=== PATIENT | male | born 1985 | race Caucasian/White ===

== ENCOUNTER 2020-01-11 13:27 | Outpatient (REF) | payer OTHER, SELFPAY | END 2020-01-11 13:28 | disposition home or self-care (01) | LOC: HO.LAB 13:27 | PROVIDERS: Visit Provider Internal Medicine | DX: Z20.828 Contact with and (suspected) exposure to other viral communicable diseases (principal) | CPT/HCPCS: 36415; 87635 ==

== ENCOUNTER 2020-04-19 10:34 | Outpatient (REF) | payer OTHER, SELFPAY | END 2020-04-19 10:35 | disposition home or self-care (01) | LOC: HO.LAB 10:34 | PROVIDERS: Visit Provider Internal Medicine | DX: Z20.822 Contact with and (suspected) exposure to COVID-19 (principal) | CPT/HCPCS: 36415; C9803; U0003 ==

== ENCOUNTER 2020-05-05 09:21 | Outpatient (REF) | payer OTHER, SELFPAY | END 2020-05-05 09:22 | disposition home or self-care (01) | LOC: HO.LAB 09:21 | PROVIDERS: Visit Provider Internal Medicine | DX: Z20.822 Contact with and (suspected) exposure to COVID-19 (principal) | CPT/HCPCS: 36415; C9803; U0003 ==

== ENCOUNTER 2022-07-18 10:25 | Emergency (ER) | payer MEDICAID, SELFPAY ==
--- NOTE | ~2022-07-18 | CT_ITS ---
EXAMINATION: CT HEAD WITHOUT CONTRAST CLINICAL INFORMATION: Hypertension with headache COMPARISON: None available. TECHNIQUE: Contiguous axial imaging was performed from the skull base to vertex without intravenous administration of contrast. This CT examination was performed using dose optimization techniques as appropriate, variously including the following: *Automated exposure control *Adjustment of mA and/or kV according to patient size (this includes techniques or standardized protocols for targeted exams where dose is matched to indication/reason for exam; i.e. extremities or head) *Use of iterative reconstruction technique DLP: 600 mGy-cm FINDINGS: No intracranial hemorrhage is identified. No significant mass effect or midline structure shift. No abnormal extra-axial fluid collections. Ledesma-white matter interfaces are maintained. The ventricles, sulci, and cisterns appear unremarkable. Calvarium intact. Visualized paranasal sinuses and mastoid air cells unremarkable. Temporomandibular joints unremarkable. CT/CT head/brain wo IV con IMPRESSION: No acute intracranial pathology.
[2022-07-18 10:39] VITALS: BP 137/105; PULSE 78; RESP 18; TEMP 36.4; O2SAT 98; BMI 22.3
--- OUTSIDE RECORDS SUMMARY | 2022-07-18 11:48 | XMS_ITS | Continuity of Care Document ---
Author Name Unknown Organization [facility] ter Address [address] [place] [id number] Care Team Providers Care Law Researcher Name Role Phone Cynthia Don MD Primary Care Physician Encounter [facility] Date(s): 04/08/19 - 04/08/[address] [address]- [facility] Encounter Diagnosis Trauma(Final) - 04/08/19 Discharge Disposition: A-D/C Home Attending Physician: Elvin Johnson DO Admitting Physician: Elvin Johnson DO Referring Physician: Not on Staff, Referring MD Allergies, Adverse Reactions, Alerts No Known Medication Allergies Results Radiology Reports * Exam Date Time Procedure Performing Provider Status 04/08/19 3:59 AM Chest Portable Wild Velasquez (Verified) Notes: (Chest Portable) Reason For Exam: Pain;Other: RESULT: Chest Portable Chest Portable AP supine at 0340 INDICATION / CLINICAL QUESTION: Pain after trauma COMPARISON: None. FINDINGS: LINES AND TUBES: None. LUNGS AND PLEURA: Clear lungs. Normal pulmonary vascularity. No pleural effusion. No pneumothorax. HEART, MEDIASTINUM AND AUGUSTUS: Normal. No mediastinal widening. BONES AND SOFT TISSUES: Normal. IMPRESSION: Normal. WSN: [id number] Dictated By: Raymon Chiang MD Dictated Date/Time: 04/08/19 8:29 am Reviewed By: Raymon Chiang MD Signed By: Raymon Chiang MD Signed Date/Time: 04/08/19 8:29 am Transcribed By: FAM Transcribed Date/Time: 04/08/19 8:28 am Vital Signs Most recent to oldest [Reference Range]: 1 2 3 Oxygen Saturation [94-100 %] 100 % (04/08/19 11:39 AM) 99 % (04/08/19 10:12 AM) 100 % (04/08/19 7:47 AM) Pulse Rate [55-90 bpm] 93 bpm *H* (04/08/19 11:39 AM) 77 bpm (04/08/19 10:12 AM) 84 bpm (04/08/19 7:47 AM) Blood Pressure [90-138/55-84 mm Hg] 125/82mm Hg (04/08/19 11:39 AM) 121/70mm Hg (04/08/19 10:12 AM) 124/72mm Hg (04/08/19 7:47 AM) Respiratory Rate [16-30 br/min] 16 br/min (04/08/19 11:39 AM) 16 br/min (04/08/19 10:12 AM) 16 br/min (04/08/19 7:47 AM) Temperature [96.8-100.4 DegF] 97.6 DegF (04/08/19 11:39 AM) 98.1 DegF (04/08/19 10:12 AM) 98.0 DegF (04/08/19 7:47 AM) Mode of Delivery (Oxygen) Room air (04/08/19 11:39 AM) Room air (04/08/19 10:12 AM) Room air (04/08/19 7:47 AM) Blood pressure sites Arm, left (04/08/19 11:39 AM) Arm, left (04/08/19 10:12 AM) Arm, left (04/08/19 7:47 AM) Temperature Route Oral (04/08/19 11:39 AM) Oral (04/08/19 10:12 AM) Oral (04/08/19 7:47 AM)
--- NOTE | 2022-07-18 11:51 | ED_ITS ---
HPI - General Adult General Chief complaint: General Medical Stated complaint: Headache Vomiting Time Seen by Provider: 07/18/22 11:39 Source: patient Mode of arrival: ambulatory History of Present Illness HPI narrative: 36-year-old male with no significant past medical history presenting to the ED complaining of worsening headache since Saturday with associated nausea/vomiting, and pruritic rash to back noted yesterday. Denies vomiting today. Denies headache being maximal at onset. Denies fever, chills, vision change/loss, CP/SOB, abdominal pain, nausea/vomiting, recent travel, known tick/insect bites, sick contacts Onset (ago): day(s) Related Data Previous Rx's Medication Instructions Recorded amlodipine 5 mg tablet (Norvasc) 5 mg PO DAILY #30 tabs 07/18/22 [id number] 1 cap PO Q4-6H PRN headache #14 07/18/22 50 mg-300 mg-40 mg capsule caps (Fioricet) hydrocortisone 1 % lotion 1 appl topical BID PRN rash #120 mL 07/18/22 (Anti-Itch (hydrocortisone)) Allergies Allergy/AdvReac Type Severity Reaction Status Date / Time From ZOFRAN Allergy Severe SWELLING/RA Uncoded 07/18/22 14:20 SH zofran Allergy Unknown rash on Uncoded 07/18/22 14:20 face Review of Systems Review of Systems: Constitutional: No Fever, No Chills, No Fatigue, No Malaise ENT/Mouth: No Ear Pain, No Nasal Congestion, No sore throat, No Rhinorrhea, No Swallowing Difficulty Eyes: No Eye Pain, No Swelling, No Redness, No Vision Changes Cardiovascular: No Chest Pain, No SOB, No Edema, No Palpitations Respiratory: No Cough, No Sputum, No Dyspnea Gastrointestinal: + Nausea, + Vomiting, No Diarrhea, No Constipation, No Abdominal pain Genitourinary: No Dysuria, No Urinary Frequency, No Hematuria, No Urinary Incontinence/retention, No Flank Pain Musculoskeletal: No joint pain, No Myalgias, No Joint Swelling Skin: No Skin Lesions, + rash Neuro: No Weakness, No Numbness, No Paresthesias, No Loss of Consciousness, No Dizziness, + Headache Yes all other systems are reviewed and are negative Constitutional: Constitutional: Reports as per HPI Neurologic: Denies Abnormal speech present [facility] Past Medical History Attestation statement: The following information was validated with the patient. Social History Social History Advance Directives: No Advance Directives Information Provided: Yes Physical Exam ED Vital Signs: Vital Signs - 24 hr 07/18/22 10:39 07/18/22 12:50 07/18/22 13:29 Temperature 97.6 F Pulse Rate 78 79 Respiratory Rate 18 18 Blood Pressure 137/105 H 147/103 H 129/93 H Pulse Oximetry 98 99 Oxygen Delivery Method Room Air Room Air 07/18/22 14:08 Temperature Pulse Rate 72 Respiratory Rate 18 Blood Pressure 137/94 H Pulse Oximetry Oxygen Delivery Method BMI result Body Mass Index 22.3 Const General: cooperative, healthy appearing, comfortable and no acute distress Orientation/consciousness: patient oriented x3 Limitations: no limitations HENMT Head: Yes normal to inspection and Yes atraumatic Ears: hearing grossly normal bilaterally General nose exam: Normal external nose present Face and sinus: Yes normal facial exam Mouth: Normal oral and palatal mucosa present Throat: Yes posterior oropharynx normal, Yes uvula midline, No peritonsillar mass and No uvular edema Eyes General: appearance normal, both eyes and all related structures Pupils: Equal, round and reactive pupils present EOM: EOMs intact bilaterally Neck Neck: Yes normal visual inspection, Yes no meningeal signs, Yes supple and No anterior neck swelling Resp Effort & Inspection: normal respiratory effort and no respiratory distress Auscultation: clear to auscultation bilaterally Cardio Rate: regular rate Heart sounds: S1 normal heart sound present and S2 normal heart sound present GI Inspection: Yes normal to inspection Palpation (GI): Soft to palpation, nontender, no guarding and not rigid Skin Other: + faint papular rash noted to back. No palm/sole or mucous membrane involvement. No sloughing. Wounds: no wounds Neuro General: patient oriented x3, gait normal, tone normal, moves all extremities, no meningeal signs, no focal motor deficits and CN's II-XI intact bilaterally Cranial nerves: Yes Equal, round and reactive pupils present Cognition (Neuro): normal cognition Speech: No Abnormal speech present Gait exam (Neuro): Normal gait present Motor exam (neuro): 5/5 motor strength present throughout Extrem General: Yes normal to inspection Course Course Course Narrative: -patient persistently hypertensive BP 147/103 >will try p.o. Norvasc -1405--labs reassuring. COVID-19/influenza negative. Syphilis negative CT head/brain wo IV con IMPRESSION: No acute intracranial pathology. -repeat BP 129/93. On re-evaluation patient reports symptomatic improvement. She feels safe for discharge home at this time Discussed with patient need a close follow-up with PCP, states called while in the department and cannot get an appointment until October. Discussed with patient will send Norvasc to the pharmacy, recommended checking BP tomorrow morning and the next day, if elevated should initiate Norvasc. Reports he has a blood pressure machine at home, otherwise discussed going to walk-in clinic to take his BP. Patient feels comfortable with this Results discussed with patient including worrisome signs and symptoms and strict return precautions, and when to return to the emergency department. They verbalized understanding and feel safe for discharge at this time. Medications Administered Discontinued Medications Generic Name Dose Route Start Last Admin Trade Name Freq PRN Reason Stop Dose Admin Acetaminophen/Butalbital/Caffeine 2 tab 07/18/22 11:56 07/18/22 12:06 Butalb/Acetamin/Caff 50/325/40 Tablet PO 07/18/22 11:57 2 tab ONCE ONE Administration Amlodipine Besylate 5 mg 07/18/22 13:22 07/18/22 13:28 Amlodipine Besylate 5 Mg Tablet PO 07/18/22 13:23 5 mg ONCE ONE Administration Protocol Metoclopramide HCl 10 mg 07/18/22 12:05 07/18/22 12:10 Metoclopramide Hcl 10 Mg Tablet PO 07/18/22 12:06 10 mg ONCE ONE Administration Medical Decision Making Medical Decision Making MDM Narrative: 36-year-old male with no significant past medical history presenting to the ED complaining of worsening headache since Saturday with associated nausea/vomiting, and pruritic rash to back noted yesterday. On exam h ypertensive 137/105, denies history of HTN or taking BP meds, NAD, nontoxic, no focal deficits, faint papular rash noted to back with out sloughing or palm/sole involvement. No mucous membrane involvement. Concern for migraine headache vs viral syndrome vs hypertensive urgency. Low suspicion for meningitis, encephalitis, SJS/TENS or ICH. Lower suspicion for tick-borne illness or syphilis. Plan: Labs, COVID-flu testing, head CT, PO Fioricet, Reglan, re-evaluate Please refer to course for remaining clinical decision making, interpretation of labs/imaging results, and discussions with consultants and/or family members. Differential Diagnosis Differential Diagnoses: The differential diagnosis associated with the presentation includes As above Admission/Observation Consideration of admission/observation: Escalation of care including admission/observation considered Lab Data MDM Lab Attestation statement: I reviewed the patient's lab results. 07/18/22 11:46 07/18/22 11:46 Labs: Lab Results 07/18/22 07/18/22 07/18/22 Range/Units 11:46 11:46 11:46 WBC 6.7 (4.8-10.8) X10*3/uL RBC 5.54 (4.60-5.80) X10*6/uL Hgb 15.1 (14.0-18.0) g/dl Hct 46.0 (42.0-52.0) % MCV 83.0 (80.0-98.0) fL MCH 27.3 (27.0-33.0) pg MCHC 32.8 (31.0-36.0) g/dl RDW 14.6 (11.0-16.0) % Plt Count 251 (160-400) X10*3/uL MPV 8.4 L (9.4-12.4) fL Absolute Nucleated RBC 0.000 (0.0-0.012) X10*3/uL Nucleated RBC % (auto) 0.0 (0.0-0.2) /100WBC Sodium 138 (135-145) mmol/L Potassium 4.5 (3.3-5.1) mmol/L Chloride 105 (96-108) mmol/L Carbon Dioxide 25 (22-29) mmol/L Anion Gap 13 (12-20) BUN 17 H (9-16) mg/dL Creatinine 1.03 (0.5-1.4) mg/dL Estim Creat Clear Calc 100.7 Estimated GFR > 60 Random Glucose 95 (60-115) mg/dL Calcium 9.9 (8.4-10.2) mg/dL Magnesium 2.0 (1.6-2.6) mg/dL T.pallidum Ab (EIA) Nonreactive (Nonreactive) COVID-19 (SUSANA) (Negative) COVID-19 Clin Com Influenza Type A (ALEXANDR) (Negative) Influenza Type B (ALEXANDR) (Negative) Influenza A & B Note 07/18/22 07/18/22 Range/Units 13:35 13:35 WBC (4.8-10.8) X10*3/uL RBC (4.60-5.80) X10*6/uL Hgb (14.0-18.0) g/dl Hct (42.0-52.0) % MCV (80.0-98.0) fL MCH (27.0-33.0) pg MCHC (31.0-36.0) g/dl RDW (11.0-16.0) % Plt Count (160-400) X10*3/uL MPV (9.4-12.4) fL Absolute Nucleated RBC (0.0-0.012) X10*3/uL Nucleated RBC % (auto) (0.0-0.2) /100WBC Sodium (135-145) mmol/L Potassium (3.3-5.1) mmol/L Chloride (96-108) mmol/L Carbon Dioxide (22-29) mmol/L Anion Gap (12-20) BUN (9-16) mg/dL Creatinine (0.5-1.4) mg/dL Estim Creat Clear Calc Estimated GFR Random Glucose (60-115) mg/dL Calcium (8.4-10.2) mg/dL Magnesium (1.6-2.6) mg/dL T.pallidum Ab (EIA) (Nonreactive) COVID-19 (SUSANA) Negative (Negative) COVID-19 Clin Com See Note Influenza Type A (ALEXANDR) Negative (Negative) Influenza Type B (ALEXANDR) Negative (Negative) Influenza A & B Note See Note Radiology Impression Discussion of test interpretation with radiology: I have reviewed the radiologist's reading. External Record Review External record reviewed: Inpatient record, Office record, Outpatient record, Prior outpatient labs, Prior outpatient radiology, Primary care record and Outside ED record Discharge Plan Discharge Clinical Impression: Headache, Rash Patient Disposition: Home, Self-Care Instructions: Acute Rash (ED) Additional Instructions: Your blood work was reassuring. We did testing for tick-borne illnesses these will be back in a few days we will call you with positive results only. He tested negative for COVID and flu Your head CT was unremarkable Your blood pressure is very elevated today, we gave you a medication called Norvasc which brought it down PLEASE MONITOR YOUR BLOOD PRESSURE THE NEXT 2 DAYS IN THE MORNING, IF CONTINUES TO BE ELEVATED START TAKING NORVASC DAILY. After initiating medication continue to check blood pressure. Low blood pressure can be more dangerous than high blood pressure. You start feeling lightheaded/dizzy, chest pain/shortness of breath, persistent or worsening rash or headache return to the emergency department Hydrocortisone as a topical steroid apply to rash only Fioricet as a combination headache medicine Prescriptions: New amlodipine [Norvasc] 5 mg tablet 5 mg PO DAILY Qty: 30 0RF [id number]-xhxibytgenmhx-mopz [Fioricet] 50-300-40 mg capsule 1 cap PO Q4-6H PRN (Reason: headache) Qty: 14 0RF hydrocortisone [Anti-Itch (HC)] 1 % lotion 1 appl topical BID PRN (Reason: rash) Qty: 120 0RF Referrals: Physician,Unknown J [Primary Care Provider] - 1 week Interventions: ED Discharge Assessment Last Done: 07/18/22 14:28 Discharge Date/Time: 07/18/22 14:29
[2022-07-18 11:55] LABS: Hemoglobin 15.1 g/dl (14.0-18.0); Mean Corpuscular HGB Conc 32.8 g/dl (31.0-36.0); Mean Corpuscular Hemoglobin 27.3 pg (27.0-33.0); Mean Platelet Volume 8.4 fL (9.4-12.4); Platelet Count 251 X10*3/uL (160-400); Red Blood Count 5.54 X10*6/uL (4.60-5.80); Red Cell Distribution Width 14.6 % (11.0-16.0); White Blood Count 6.7 X10*3/uL (4.8-10.8)
[2022-07-18] MEDS: Butalb/Acetamin/Caff 50/325/40 TABLET 2 TAB PO (12:06)
[2022-07-18 12:10] LABS: Anion Gap 13 (12-20); Blood Urea Nitrogen 17 mg/dL (9-16); Calcium 9.9 mg/dL (8.4-10.2); Carbon Dioxide 25 mmol/L (22-29); Chloride 105 mmol/L (96-108); Creatinine Clr Calc Pharmacy 100.7; Estimated Glomerular Filt Rate > 60; Glucose Random 95 mg/dL (60-115); Potassium 4.5 mmol/L (3.3-5.1); Sodium 138 mmol/L (135-145)
[2022-07-18] MEDS: Metoclopramide HCl 10 MG TABLET PO (12:10)
--- NOTE | 2022-07-18 12:11 | PC.NURSE ---
pt a&ox3, medicated per provider order for 8/10 headache/nausea, pt pending head ct.
[2022-07-18 12:50] VITALS: BP 147/103; PULSE 79; RESP 18; O2SAT 99
--- NOTE | 2022-07-18 12:52 | PC.NURSE ---
pt a&ox3, hypertensive, other vss, resting quietly, pending CT results.
[2022-07-18 12:56] LABS: Syphilis Screen Nonreactive (Nonreactive)
[2022-07-18] MEDS: amLODIPine Besylate 5 MG TABLET PO (13:28)
[2022-07-18 13:29] VITALS: BP 129/93
--- NOTE | 2022-07-18 13:29 | PC.NURSE ---
medicated per provider order.
[2022-07-18 13:59] LABS: COVID-19 Test Negative (Negative); IDNOW Serial# 08D9AD1C; IDNOW Serial# 9DB6401D; Influenza A Negative (Negative); Influenza B2 Negative (Negative)
[2022-07-18 14:08] VITALS: BP 137/94; PULSE 72; RESP 18
--- NOTE | 2022-07-18 14:09 | PC.NURSE ---
pt reporting reduction in pain, now 3/10 headache. resting quietly.
[2022-07-19 18:32] LABS: Lyme Abs Screen <0.90 index
[2022-07-22 04:13] LABS: A. Phagocytphilium DNA,RT-PCR NOT DETECTED (NOT DETECTED); Babesia Microti DNA, RT-PCR NOT DETECTED (NOT DETECTED); Borrelia Miyamotoi,DNA RT-PCR NOT DETECTED (NOT DETECTED); E.Chaffeensis DNA RT-PCR NOT DETECTED (NOT DETECTED); Lyme(Borrelia ssp)DNA RT-PCR NOT DETECTED (NOT DETECTED)
== END 2022-07-18 14:29 | disposition home or self-care (01) ==
PROVIDERS: Physician Assistant; Emergency Provider Emergency Medicine
DX: R51.9 Headache, unspecified (principal); R21 Rash and other nonspecific skin eruption; R11.2 Nausea with vomiting, unspecified; Z20.822 Contact with and (suspected) exposure to COVID-19
CPT/HCPCS: 36415; 70450; 80048; 83735; 85027; 86617; 86618; 86780; 87502; 87635; 87798; 87801; 99284

== ENCOUNTER 2022-10-17 10:26 | Emergency (ER) | payer MEDICAID, SELFPAY ==
[2022-10-17 10:30] VITALS: BP 142/93; PULSE 67; RESP 18; TEMP 36.8; O2SAT 99; BMI 22.3
--- NOTE | 2022-10-17 11:28 | ED.BACK ---
HPI - Back Pain/Injury General Chief Complaint: Back Pain/Injury Stated Complaint: Back pain after work out Time Seen by Provider: 10/17/22 10:54 Source: patient, RN notes reviewed and old records reviewed Mode of arrival: ambulatory History of Present Illness HPI Narrative: 37-year-old male with no significant past medical history presenting to the ED complaining of left-sided low back pain S/P lifting/working out with dumbbells yesterday in hearing popping sound. Also reports odorous urine. Took Motrin yesterday without relief. States went to work this morning however pain is worsening, worse with movement. Denies radiation of pain down lower extremities, numbness, tingling, weakness, urinary incontinence/retention, fever, direct injury/trauma or fall, hematuria/dysuria. MD elicited complaint: back pain Related Data Previous Rx's Medication Instructions Recorded amlodipine 5 mg tablet (Norvasc) 5 mg PO DAILY #30 tabs 07/18/22 [id number]-gkkuzwvukbehs-uturvzpf 1 cap PO Q4-6H PRN headache #14 07/18/22 50 mg-300 mg-40 mg capsule caps (Fioricet) hydrocortisone 1 % lotion 1 appl topical BID PRN rash #120 mL 07/18/22 (Anti-Itch (hydrocortisone)) acetaminophen 500 mg tablet 500 mg PO Q6H PRN fever or pain 10/17/22 (Tylenol Extra Strength) #14 tabs cyclobenzaprine 5 mg tablet 5 mg PO Q8H PRN pain (scale score 10/17/22 7-10) 5 days #14 tabs lidocaine 5 % topical patch 1 patch topical DAILY PRN pain #30 10/17/22 (Lidoderm) ea naproxen 500 mg tablet 500 mg PO BID PRN pain 10 days #20 10/17/22 tabs Allergies Allergy/AdvReac Type Severity Reaction Status Date / Time From ZOFRAN Allergy Severe SWELLING/RA Uncoded 10/17/22 10:30 SH zofran Allergy Unknown rash on Uncoded 10/17/22 10:30 face Review of Systems Review of Systems: Constitutional:No Fever, No Chills ENT/Mouth: No Ear Pain, No Nasal Congestion, No sore throat, No Rhinorrhea, No Swallowing Difficulty Cardiovascular: No Chest Pain, No SOB Respiratory: No Cough, No Sputum Gastrointestinal: No Nausea, No Vomiting, No Abdominal pain Genitourinary: No Dysuria, No Hematuria, No Urinary Incontinence/retention, No Flank Pain Musculoskeletal: + joint pain, No Myalgias, No Joint Swelling Skin: No Skin Lesions, No rash Neuro: No Weakness, No Numbness, No Paresthesias Yes all other systems are reviewed and are negative Constitutional: Constitutional: Reports as per [facility] Past Medical History Attestation statement: The following information was validated with the patient. Source: old records reviewed Social History Social History Advance Directives: No Advance Directives Information Provided: No Physical Exam Vital Signs: Vital Signs: Last Vital Signs Temp 98.3 F 10/17/22 10:30 Pulse 67 10/17/22 10:30 Resp 18 10/17/22 10:30 BP 142/93 H 10/17/22 10:30 Pulse Ox 99 10/17/22 10:30 O2 Del Method Room Air 10/17/22 10:30 BMI result Body Mass Index 22.3 Const: General: cooperative, healthy appearing and no acute distress Orientation/consciousness: patient oriented x3 Limitations: no limitations HEENT: Head: Yes normal to inspection and Yes atraumatic Ears: hearing grossly normal bilaterally General nose exam: Normal external nose present Face and sinus: Yes normal facial exam Eyes: General: appearance normal, both eyes and all related structures EOM: EOMs intact bilaterally Neck: Neck: Yes normal visual inspection and Yes no meningeal signs Resp: Effort & Inspection: normal respiratory effort and no respiratory distress Cardio: Rate: regular rate GI: Inspection: Yes normal to inspection Palpation (GI): Soft to palpation, nontender, no guarding and not rigid : General: Yes no CVA tenderness Back/Spine/Pelvis: Other: No midline cervical/thoracic/lumbar spinous tenderness/step-off or deformity. + left-sided upper lumbar MSK tenderness to palpation. No erythema/rash or ecchymosis Back: no CVA tenderness Skin: Rashes: no rashes Wounds: no wounds Neuro: Other: Strength intact throughout. No saddle anesthesia. Sensation intact to light touch. Neurovascular intact distally. ambulating with antalgic gait General: patient oriented x3, tone normal, moves all extremities and no meningeal signs Motor exam (neuro): 5/5 motor strength present throughout Extrem: General: Yes normal to inspection Medications Administered Discontinued Medications Generic Name Dose Route Start Last Admin Trade Name Myriam PRN Reason Stop Dose Admin Cyclobenzaprine HCl 10 mg 10/17/22 12:14 10/17/22 12:24 Cyclobenzaprine Hcl 10 Mg Tablet PO 10/17/22 12:15 10 mg ONCE ONE Administration Ketorolac Tromethamine 30 mg 10/17/22 12:14 10/17/22 12:25 Ketorolac Tromethamine 30 Mg/Ml Vial IM 10/17/22 12:15 30 mg ONCE ONE Administration Medical Decision Making Medical Decision Making MDM Narrative: 37-year-old male with no significant past medical history presenting to the ED complaining of left-sided low back pain S/P lifting/working out with dumbbells yesterday in hearing popping sound. On exam vital signs stable, NAD, nontoxic appearing, no midline spinous tenderness or or red flag symptoms, ambulating with antalgic steady gait, no CVAT. Abdomen soft/nontender. Concern for MSK pain/strain. Low suspicion for fracture, dislocation, cauda equina, cord compression, epidural abscess, renal stone or pyelo. Rule out UTI with odorous urine Plan: UA, pain control Results discussed with patient including worrisome signs and symptoms and strict return precautions, and when to return to the emergency department. They verbalized understanding and feel safe for discharge at this time. Differential Diagnosis Differential Diagnoses: The differential diagnosis associated with the presentation includes As above Lab Data Labs: Lab Results 10/17/22 Range/Units 12:02 Urine Color Yellow Urine Appearance Clear Urine pH 5.5 (5.0-9.0) Ur Specific [place] >= 1.030 H (1.005-1.025) Urine Protein Negative (Neg-Trace) mg/dL Urine Glucose (UA) Negative (Negative) mg/dL Urine Ketones Negative (Negative) mg/dL Urine Blood Negative (Negative) Urine Nitrite Negative (Negative) Ur Leukocyte Esterase Negative (Negative) External Record Review External record reviewed: Inpatient record, Office record, Outpatient record, Prior outpatient labs, Prior outpatient radiology, Primary care record and Outside ED record Tests considered The following testing was considered but not selected: X-ray considered however not needed at this time Prescription Management I considered prescription management with: Pain Medication Discharge Plan Discharge Clinical Impression: Strain of lumbar region Patient Disposition: Home, Self-Care Instructions: Acute Low Back Pain (ED) Additional Instructions: Your pain is likely musculoskeletal Flexeril is a muscle relaxer, take at night as it makes you drowsy, do not drive, drink alcohol, or operate machinery while taking it Naproxen as an anti-inflammatory / pain medication, take with food Lidoderm patches are numbing patches, apply to painful area In addition take Tylenol at home If symptoms persist or worsen, pain becomes unbearable, you developed urinary retention or incontinence, or weakness return to the ED Prescriptions: New acetaminophen [Tylenol Extra Strength] 500 mg tablet 500 mg PO Q6H PRN (Reason: fever or pain) Qty: 14 0RF lidocaine [Lidoderm] 5 % adhesive patch,medicated 1 patch topical DAILY MDD remove after 12 hours PRN (Reason: pain) Qty: 30 0RF Rx Instructions: leave on most painful area for up to 12 hrs naproxen 500 mg tablet 500 mg PO BID PRN (Reason: pain) 10 Days Qty: 20 0RF cyclobenzaprine 5 mg tablet 5 mg PO Q8H PRN (Reason: pain (scale score 7-10)) 5 Days Qty: 14 0RF No Action amlodipine [Norvasc] 5 mg tablet 5 mg PO DAILY Qty: 30 0RF xtbszoyzpo-mihufujqajuba-hbtq [Fioricet] 50-300-40 mg capsule 1 cap PO Q4-6H PRN (Reason: headache) Qty: 14 0RF hydrocortisone [Anti-Itch (HC)] 1 % lotion 1 appl topical BID PRN (Reason: rash) Qty: 120 0RF Referrals: Physician,Unknown J [Primary Care Provider] - Stand Alone Forms: Work/School Release
[2022-10-17 12:13] LABS: Appearance Urine Clear; Color Urine Yellow; Glucose Urine UA Negative (Negative); Leukocyte Esterase Urine Negative (Negative); Nitrite Urine Negative (Negative); PH 5.5 (5.0-9.0); Specific Gravity - Urine >= 1.030 (1.005-1.025); Urine Blood Negative (Negative); Urine Ketones Negative (Negative); Urine Protein Negative (Neg-Trace)
[2022-10-17] MEDS: Cyclobenzaprine HCl 10 MG TABLET PO (12:24)
[2022-10-17] MEDS: Ketorolac Tromethamine 30 MG/ML VIAL IM (12:25)
== END 2022-10-17 13:12 | disposition home or self-care (01) ==
PROVIDERS: Physician Assistant; Emergency Provider Emergency Medicine
DX: S39.012A Strain of muscle, fascia and tendon of lower back, initial encounter (principal); X50.0XXA Overexertion from strenuous movement or load, initial encounter; Y93.B3 Activity, free weights; Y92.9 Unspecified place or not applicable; Y99.9 Unspecified external cause status
CPT/HCPCS: 81003; 96372; 99283; 99284; J1885

== ENCOUNTER 2023-07-25 22:17 | Emergency (ER) | payer SELFPAY ==
--- NOTE | 2023-07-25 22:19 | ECG_ITS ---
Test Reason : CHEST PAIN Blood Pressure : / mmHG Vent. Rate : 080 BPM Atrial Rate : 080 BPM P-R Int : 136 ms QRS Dur : 092 ms QT Int : 340 ms P-R-T Axes : 017 004 022 degrees QTc Int : 392 ms Normal sinus rhythm Normal ECG No previous ECGs available Referred By: Generic ED Physician Electronically Signed By:NEGRO VIDALES
[2023-07-25 22:20] VITALS: BP 135/87; PULSE 84; RESP 16; TEMP 36.6; O2SAT 98; BMI 23.7
--- OUTSIDE RECORDS SUMMARY | 2023-07-25 22:35 | XMS_ITS | Continuity of Care Document ---
Author Organization [facility] Address [address] [place] [id number]- Care Team Providers Care Dredge Or Barge Shore Hand Name Role Phone Ventura Chavez NP Primary Care Physician [phone] Encounter [facility] [place] Date(s): 03/05/23 - 04/04/23 [facility] [address] [place] [id number]- Attending Physician: Cecilio Medina Admitting Physician: AdmCecilio west Referring Physician: AdmtrCecilio Allergies, Adverse Reactions, Alerts No Known Allergies Medications Misc Rx Refills 0, Maintenance, CHANTIX, 07/13/17 16:02:47 EDT, Compound Start Date: 07/13/17 Status: Ordered Ondansetron 0 Refills, Maintenance, 07/13/17 16:02:24 EDT Start Date: 07/13/17 Status: Ordered Percocet-5/325 325 mg-5 mg oral tablet 1 tablet, By Mouth, Every 4 hours, PRN Pain, # 12 tablet, 0 Refills Start Date: 01/04/09 Stop Date: 01/11/09 Status: Ordered Patient Care team information Care Team Personnel Name: Ventura Chavez NP Position: Reference Physician Member Role: PCP Care Team Related Persons Name: MAYDA HE Address: home [address] [place] [address] Name: GREG NAIDU Address: [address] [place] [address]
--- OUTSIDE RECORDS SUMMARY | 2023-07-25 22:35 | XMS_ITS | Continuity of Care Document ---
Author Organization [facility] Address [address] [place] [address]- Care Team Providers Care Standards Analyst Name Role Phone Ventura Chavez NP Primary Care Physician [phone] [id number] Date(s): 01/02/23 - 04/04/23 [facility] [address] [place] [address]- Attending Physician: Rosendo Rick Admitting Physician: Rosendo Rick Referring Physician: Micah RICHMOND, Geovanny Espino Allergies, Adverse Reactions, Alerts No Known Allergies [...] Persons Name: MAYDA HE Address: home [address] [place] [address] Name: GREG NAIDU Address: [address] [place] [address]
--- OUTSIDE RECORDS SUMMARY | 2023-07-25 22:35 | XMS_ITS | Continuity of Care Document ---
Author Organization [facility] Address [address] [place] [address]- Care Team Providers Care Wastewater Project Engineer Name Role Phone Ventura Chavez NP Primary Care Physician [phone] Encounter [facility] [place] Date(s): 12/04/22 - 01/03/23 [facility] [address] [place] [id number]- Allergies, Adverse Reactions, Alerts No Known Allergies [...] Persons Name: MAYDA HE Address: [address] [place] [address] Name: GREG NAIDU Address: [address] [place] [address]
[2023-07-25 22:36] LABS: MANUAL DIFF FLAG NO
[2023-07-25 22:38] LABS: Basophils Percent Auto 0.4 % (0-2); Eosinophils Absolute Auto 0.2 X10*3/uL (0.0-0.4); Hematocrit 41.3 % (42.0-52.0); Hemoglobin 13.9 g/dl (14.0-18.0); Imm Gran Abs Auto 0.02 X10*3/uL (0.00-0.03); Imm Gran Pct Auto 0.2 % (0.0-0.4); Lymphocytes Absolute Auto 2.7 X10*3/uL (1.2-4.9); Lymphocytes Percent Auto 29.4 % (20-40); Mean Corpuscular HGB Conc 33.7 g/dl (31.0-36.0); Mean Corpuscular Hemoglobin 26.7 pg (27.0-33.0); Mean Corpuscular Volume 79.4 fL (80.0-98.0); Mean Platelet Volume 8.3 fL (9.4-12.4); Monocytes Absolute Auto 0.9 X10*3/uL (0.1-1.2); Monocytes Percent Auto 10.1 % (2-11); Neutrophils Absolute Auto 5.4 x10*3/uL (2.0-8.3); Neutrophils Percent Auto 57.9 % (45-73); Platelet Count 284 X10*3/uL (160-400); Red Cell Distribution Width 14.8 % (11.0-16.0); White Blood Count 9.3 X10*3/uL (4.8-10.8)
[2023-07-25 22:51] LABS: Anion Gap 14 (12-20); Blood Urea Nitrogen 24 mg/dL (9-16); Calcium 9.5 mg/dL (8.4-10.2); Carbon Dioxide 24 mmol/L (22-29); Chloride 107 mmol/L (96-108); Creatinine Clr Calc Pharmacy 75.4; Estimated Glomerular Filt Rate 58; Glucose Random 110 mg/dL (60-115); Potassium 3.8 mmol/L (3.3-5.1); Sodium 141 mmol/L (135-145)
[2023-07-25 22:59] LABS: Troponin-I High Sensitivity < 2.7 ng/L (<3.5-35.0)
[2023-07-26 02:26] LABS: Troponin-I High Sensitivity < 2.7 ng/L (<3.5-35.0)
--- NOTE | 2023-07-26 03:51 | ED_ITS ---
HPI - Chest Pain General Chief Complaint: Chest Pain Stated Complaint: Chest Pains Time Seen by Provider: 07/26/23 03:45 Source: patient and family Mode of arrival: ambulatory Limitations: no limitations History of Present Illness HPI narrative: chest pain that woke him from sleep, patient states he has a past history of rapid heart rate, states that he is taking his amlodipine complaint: chest pain Onset (ago): hour(s) Timing of current episode: now resolved Onset: other (during sleep) Pain location: left chest Severity: moderate Quality: sharp Risk Factors Coronary artery disease risk factors: none Related Data Previous Rx's ?Medication ?Instructions ?Recorded amlodipine 5 mg tablet (Norvasc) 5 mg PO DAILY #30 tabs 07/18/22 bdfzeteyih-khuqdvjdmwfuj-qepucmym 1 cap PO Q4-6H PRN headache #14 07/18/22 50 mg-300 mg-40 mg capsule caps (Fioricet) hydrocortisone 1 % lotion 1 appl topical BID PRN rash #120 mL 07/18/22 (Anti-Itch (hydrocortisone)) acetaminophen 500 mg tablet 500 mg PO Q6H PRN fever or pain 10/17/22 (Tylenol Extra Strength) #14 tabs cyclobenzaprine 5 mg tablet 5 mg PO Q8H PRN pain (scale score 10/17/22 7-10) 5 days #14 tabs lidocaine 5 % topical patch 1 patch topical DAILY PRN pain #30 10/17/22 (Lidoderm) ea naproxen 500 mg tablet 500 mg PO BID PRN pain 10 days #20 10/17/22 tabs Allergies Allergy/AdvReac Type Severity Reaction Status Date / Time From ZOFRAN Allergy Severe SWELLING/RA Uncoded 07/25/23 22:22 SH zofran Allergy Mild rash on Uncoded 07/25/23 22:22 face Review of Systems 2 Review of Systems: Yes all other systems are reviewed and are negative Neurologic: Denies Sensory deficit (Neuro) PMFSH Social History Social History Advance Directives: No Advance Directives Information Provided: No Physical Exam 2 Vital Signs: Vital Signs: Last Vital Signs Temp 97.8 F 07/25/23 22:20 Pulse 84 07/25/23 22:20 Resp 16 07/25/23 22:20 BP 135/87 07/25/23 22:20 Pulse Ox 98 07/25/23 22:20 O2 Del Method Room Air 07/25/23 22:20 BMI result Body Mass Index 23.7 Const: General: healthy appearing Nutritional Appearance: average body habitus Orientation/consciousness: oriented to person and patient oriented x3 Limitations: no limitations HEENT: Head: Yes normal to inspection Ears: external ears normal General nose exam: Normal external nose present Mouth: Normal oral and palatal mucosa present and oropharynx normal Throat: Yes posterior oropharynx normal Eyes: General: appearance normal, both eyes and all related structures Neck: Other: supple Neck: Yes normal visual inspection Chest: Chest palpation & inspection: normal inspection of the chest Resp: Auscultation: clear to auscultation bilaterally Cardio: Jugular venous distension: no JVD Rate: regular rate Rhythm: r egular rhythm Heart sounds: S1 normal heart sound present and S2 normal heart sound present GI: Inspection: Yes normal to inspection Palpation (GI): Soft to palpation, nontender and No hepatosplenomegaly present Auscultation: normal bowel sounds : General: Yes no CVA tenderness Back/Spine/Pelvis: Back: no CVA tenderness Skin: General skin exam: no rashes or lesions noted Neuro: General: oriented to person and patient oriented x3 Cranial nerves: Yes CN's II-XII intact bilaterally Motor exam (neuro): 5/5 motor strength present throughout Sensory Exam: No Sensory deficit (Neuro) Extrem: General: Yes normal to inspection Psych: Appearance: grossly normal Course Reevaluation(s) Reevaluation #1: patient with normal EKG, serial troponins negative will dc with follow up for pmd Time: 03:55 Medical Decision Making Differential Diagnosis Differential Diagnoses: The differential diagnosis associated with the presentation includes (cardiac ischemia, arythmia, atypical chest pain, palpitation were all considered) Admission/Observation Consideration of admission/observation: Escalation of care including admission/observation considered (upon arrival patient considered for admission) Lab Data 07/25/23 22:30 07/25/23 22:30 Labs: Lab Results 07/25/23 07/26/23 Range/Units 22:30 01:59 WBC 9.3 (4.8-10.8) X10*3/uL RBC 5.20 (4.60-5.80) X10*6/uL Hgb 13.9 L (14.0-18.0) g/dl Hct 41.3 L (42.0-52.0) % MCV 79.4 L (80.0-98.0) fL MCH 26.7 L (27.0-33.0) pg MCHC 33.7 (31.0-36.0) g/dl RDW 14.8 (11.0-16.0) % Plt Count 284 (160-400) X10*3/uL MPV 8.3 L (9.4-12.4) fL Immature Gran % (Auto) 0.2 (0.0-0.4) % Neut % (Auto) 57.9 (45-73) % Lymph % (Auto) 29.4 (20-40) % Hanson % (Auto) 10.1 (2-11) % Eos % (Auto) 2.0 (0-4) % Baso % (Auto) 0.4 (0-2) % Lymph # (Auto) 2.7 (1.2-4.9) X10*3/uL Hanson # (Auto) 0.9 (0.1-1.2) X10*3/uL Eos # (Auto) 0.2 (0.0-0.4) X10*3/uL Baso # (Auto) 0.0 (0.0-0.2) X10*3/uL Abs Immat Gran (auto) 0.02 (0.00-0.03) X10*3/uL Absolute Neuts (auto) 5.4 (2.0-8.3) x10*3/uL Absolute Nucleated RBC 0.000 (0.0-0.012) X10*3/uL Nucleated RBC % (auto) 0.0 (0.0-0.2) /100WBC Sodium 141 (135-145) mmol/L Potassium 3.8 (3.3-5.1) mmol/L Chloride 107 (96-108) mmol/L Carbon Dioxide 24 (22-29) mmol/L Anion Gap 14 (12-20) BUN 24 H (9-16) mg/dL Creatinine 1.37 (0.5-1.4) mg/dL Estim Creat Clear Calc 75.4 Estimated GFR 58 Random Glucose 110 (60-115) mg/dL Calcium 9.5 (8.4-10.2) mg/dL Troponin I High Sens < 2.7 < 2.7 (<3.5-35.0) ng/L Independent Interpretation I performed an independent interpretation of an: EKG (normal sinus rhythm, rate of 80, no st or twave changes) Independent Historian Clinical information obtained from an independent historian. History obtained from or confirmed by: Spouse Tests considered The following testing was considered but not selected: CT of chest considered but patient with risk factors for PE Chronic Conditions Patient?s care impacted by: Hypertension Discharge Plan Discharge Clinical Impression: Chest pain Patient Disposition: Home, Self-Care Instructions: Chest Pain (ED) Prescriptions: No Action amlodipine [Norvasc] 5 mg tablet 5 mg PO DAILY Qty: 30 0RF ijafpjpkvh-ildtpwfmnwzhk-chgk [Fioricet] 50-300-40 mg capsule 1 cap PO Q4-6H PRN (Reason: headache) Qty: 14 0RF hydrocortisone [Anti-Itch (HC)] 1 % lotion 1 appl topical BID PRN (Reason: rash) Qty: 120 0RF acetaminophen [Tylenol Extra Strength] 500 mg tablet 500 mg PO Q6H PRN (Reason: fever or pain) Qty: 14 0RF lidocaine [Lidoderm] 5 % adhesive patch,medicated 1 patch topical DAILY MDD remove after 12 hours PRN (Reason: pain) Qty: 30 0RF Rx Instructions: leave on most painful area for up to 12 hrs naproxen 500 mg tablet 500 mg PO BID PRN (Reason: pain) 10 Days Qty: 20 0RF cyclobenzaprine 5 mg tablet 5 mg PO Q8H PRN (Reason: pain (scale score 7-10)) 5 Days Qty: 14 0RF Referrals: Krish Velasquez MD [Physician] - 5 days (call for follow up) Physician,Criss J [Primary Care Provider] - 5 days Print Language: Thai
[2023-07-26 04:01] VITALS: BP 125/91; PULSE 72; RESP 16; TEMP 36.5; O2SAT 97
== END 2023-07-26 04:02 | disposition home or self-care (01) ==
PROVIDERS: Emergency Provider Emergency Medicine
DX: R07.9 Chest pain, unspecified (principal)
CPT/HCPCS: 36415; 80048; 84484; 85025; 93005; 99283

== ENCOUNTER → 2023-07-25 22:19 | Outpatient (BNV) | payer SELFPAY | PROVIDERS: Emergency Provider Emergency Medicine; Visit Provider Internal Medicine | DX: R07.9 Chest pain, unspecified (principal) | CPT/HCPCS: 93010 ==

== ENCOUNTER 2024-03-18 14:00 | Emergency (ER) | payer OTHER, SELFPAY ==
--- NOTE | ~2024-03-18 | XR_ITS ---
EXAMINATION: XR LUMBOSACRAL SPINE CLINICAL INFORMATION: back injury COMPARISON: CT abdomen pelvis 11/02/2010 (report only) TECHNIQUE: Three views of the lumbosacral spine. FINDINGS: The vertebral bodies and posterior elements are unremarkable. There is a rounded sclerotic density seen in the L5 vertebral body which may represent a bone island. The disc spaces are preserved and the vertebral alignment is normal. The paraspinal soft tissues are normal. XR/XR lumbar spine 2-3V IMPRESSION: 1. No evidence of an acute osseous injury. 2. Rounded sclerotic density in the L5 vertebral body may represent a bone island. Electronically signed by: Torsten Greene MD 03/18/2024 05:19 PM MARINA
[2024-03-18 14:36] VITALS: BP 130/92; PULSE 80; RESP 18; TEMP 36.7; O2SAT 99; BMI 23.2
[2024-03-18 16:26] LABS: Influenza A PCR NEGATIVE (Negative); Influenza B PCR NEGATIVE (Negative); Resp Syncy Virus RNA Qual PCR NEGATIVE (Negative); SARS COV2 PCR INHOUSE NEGATIVE (Negative)
--- NOTE | 2024-03-18 18:22 | ED_ITS ---
HPI - General Adult General Chief complaint: Back Pain/Injury Stated complaint: back pain, requesting covid test Time Seen by Provider: 03/18/24 18:21 Source: patient Mode of arrival: ambulatory Limitations: no limitations History of Present Illness ED Provider: rachel HPI narrative: Patient is a 38-year-old male with no reported past medical history presenting to the emergency department with complaint of lower back pain for the past week after lifting a heavy item at work. He estimates the item to be between 80-100 lb. States he is frequently lifting heavy items at work. Denies any twisting motions. Denies any fall or other trauma. Denies saddle anesthesia or bowel or bladder incontinence. Denies fever, history of IV drug use, cancer. Has tried Tylenol, ibuprofen, tramadol without relief. States pain now radiating down right leg. Denies any weakness, numbness or tingling to legs. MD complaint: Back pain Onset (ago): week(s) Location: back Radiation: extremity Severity: severe Quality: aching Associated symptoms: denies other symptoms Treatments prior to arrival: NSAID and other Related Data Previous Rx's ?Medication ?Instructions ?Recorded amlodipine 5 mg tablet (Norvasc) 5 mg PO DAILY #30 tabs 07/18/22 fijnqirrhk-lyivembvddmej-jdajakly 1 cap PO Q4-6H PRN headache #14 07/18/22 50 mg-300 mg-40 mg capsule caps (Fioricet) hydrocortisone 1 % lotion 1 appl topical BID PRN rash #120 mL 07/18/22 (Anti-Itch (hydrocortisone)) acetaminophen 500 mg tablet 500 mg PO Q6H PRN fever or pain 10/17/22 (Tylenol Extra Strength) #14 tabs cyclobenzaprine 5 mg tablet 5 mg PO Q8H PRN pain (scale score 10/17/22 7-10) 5 days #14 tabs lidocaine 5 % topical patch 1 patch topical DAILY PRN pain #30 10/17/22 (Lidoderm) ea naproxen 500 mg tablet 500 mg PO BID PRN pain 10 days #20 10/17/22 tabs cyclobenzaprine 10 mg tablet 10 mg PO TID PRN muscle spasm #10 03/18/24 tabs lidocaine 5 % topical patch 1 patch topical DAILY #15 ea 03/18/24 prednisone 20 mg tablet 40 mg (2 x 20 mg) PO DAILY #10 tabs 03/18/24 Allergies Allergy/AdvReac Type Severity Reaction Status Date / Time From ZOFRAN Allergy Severe SWELLING/RA Uncoded 03/18/24 14:39 SH zofran Allergy Mild rash on Uncoded 03/18/24 14:39 face Review of Systems Review of Systems: As per HPI. Yes all other systems are reviewed and are negative Constitutional: Constitutional: Reports as per HPI [facility] Social History Social History Advance Directives: No Advance Directives Information Provided: No Physical Exam ED Vital Signs: Vital Signs - 24 hr 03/18/24 14:36 Temperature 98.1 F Pulse Rate 80 Respiratory Rate 18 Blood Pressure 130/92 H Pulse Oximetry 99 Oxygen Delivery Method Room Air BMI result Body Mass Index 23.2 Vital signs have been reviewed and appear to be correct. Blood pressure normal. Heart rate normal. Respiratory rate normal. Temperature normal. Oxygen saturation normal. Const General: cooperative, healthy appearing and no acute distress Orientation/consciousness: oriented to person, oriented to place, oriented to time and patient oriented x3 Limitations: no limitations HENMT Head: Yes normocephalic and Yes atraumatic Ears: external ears normal General nose exam: Normal external nose present Face and sinus: Yes face symmetric Mouth: oropharynx normal and moist mucous membranes Throat: Yes uvula midline Eyes Pupils: Equal, round and reactive pupils present Neck Neck: Yes normal visual inspection and Yes supple Resp Effort & Inspection: normal respiratory effort and able to speak in complete sentences Auscultation: clear to auscultation bilaterally Cardio Rate: regular rate Rhythm: regular rhythm Heart sounds: S1 normal heart sound present and S2 normal heart sound present GI Palpation (GI): Soft to palpation and nontender Auscultation: normoactive bowel sounds General: Yes no CVA tenderness Back/Spine/Pelvis Back: no CVA tenderness Thoracic/Lumbar Spine: thoracic and lumbar spine normal to inspection, thoraco- lumbar ROM normal, straight leg raise negative bilaterally, pain with thoraco- lumbar ROM, paraspinal muscle tenderness bilaterally in the upper lumbar and in the mid lumbar, No thoracic spinal tenderness and No lumbar spinal tenderness Pelvis: no pain with anterior-posterior compression and no pain with lateral co mpression Skin General skin exam: elasticity normal and turgor normal Neuro General: oriented to person, oriented to place, oriented to time, patient oriented x3, gait normal, tone normal, moves all extremities, Normal light touch and pain sensation, no focal motor deficits, CN's II-XI intact bilaterally and deep tendon reflexes 2+ bilaterally Cranial nerves: Yes Equal, round and reactive pupils present Cognition (Neuro): normal cognition Motor exam (neuro): 5/5 motor strength present throughout, Normal motor muscle tone present throughout and Motor abnormalities not present Extrem General: Yes full ROM, Yes no pedal edema and Yes no calf tenderness Psych Mental Status: mental status grossly normal Affect: normal affect Thought process: Normal thought process present Medical Decision Making Medical Decision Making [facility] Narrative: Patient is a 38-year-old male with no reported past medical history presenting to the emergency department with complaint of lower back pain for the past week after lifting a heavy item at work. On exam patient is awake, A+Ox3, VS WNL, afebrile, normal neurological exam without focal deficits, physical exam findings as above. Given reported symptoms and physical exam findings, initial differential includes lumbar strain, lumbar radiculopathy, degenerative disc disease, disc herniation, spinal stenosis, spondylosis. Less likely vertebral fracture. No red flag findings concerning for malignancy/mass, SEA, cauda equina/cord compression. X-ray lumbar spine notable for no evidence of acute fracture subluxation. My interpretation is in agreement with the radiologist's interpretation. Results discussed with patient all questions answered. Will discharge patient home with course of prednisone, Flexeril, lidocaine patches. Advised patient he may need to follow-up with PCP for physical therapy referral. Return precautions discussed at bedside. Patient verbalized understanding of and agreement with plan. Differential Diagnosis Differential Diagnoses: The differential diagnosis associated with the presentation includes As per MDM. Lab Data [facility] Lab Attestation statement: I reviewed the patient's lab results. As per [facility]. Labs: Lab Results 03/18/24 Range/Units 15:15 Influenza Type A (PCR) NEGATIVE (Negative) Influenza Type B (PCR) NEGATIVE (Negative) RSV RNA Qual (PCR) NEGATIVE (Negative) SARS-CoV-2 RNA (RT-PCR) NEGATIVE (Negative) Independent Interpretation I performed an independent interpretation of an: Plain X-Ray Interpretation: Lumbar spine x-ray without evidence of acute fracture or subluxation Radiology Impression Discussion of test interpretation with radiology: I have reviewed the radiologist's reading. Radiologist Impression: XR/XR lumbar spine 2-3V IMPRESSION: 1. No evidence of an acute osseous injury. 2. Rounded sclerotic density in the L5 vertebral body may represent a bone island. External Record Review External record reviewed: Inpatient record, Office record and Outpatient record Prescription Management I considered prescription management with: Pain Medication and Other Discharge Plan Discharge Clinical Impression: Strain of lumbar region Patient Disposition: Home, Self-Care Instructions: Low Back Strain (ED), Acute Low Back Pain (ED) Additional Instructions: You were evaluated in the emergency department today for back pain. Your evaluation did not show signs of medical conditions requiring emergent intervention at this time. We recommended that you use ibuprofen or Tylenol per package directions every 6 hours as needed for pain. If necessary, you can alternate these medications so that you take one medication every 3 hours. For instance, at noon take ibuprofen, then at 3:00 p.m. take Tylenol, then at 6:00 p.m. take ibuprofen. You have been prescribed a muscle relaxer which you may take every 8 hours as needed for spasms. You have been prescribed 5% topical lidocaine patches which you can wear for up to 12 hours in a 24 hour period. Do not apply heat directly over the patches. You have been prescribed a short course of steroids to decrease inflammation. Please schedule an appointment for follow-up with your primary care physician this week for further evaluation of your symptoms. Return to the emergency department if you experience worsening back pain, difficulty walking, fevers, numbness, tingling, incontinence, groin numbness or tingling, or any other concerning symptoms. Prescriptions: New cyclobenzaprine 10 mg tablet 10 mg PO TID PRN (Reason: muscle spasm) Qty: 10 0RF lidocaine 5 % adhesive patch,medicated 1 patch topical DAILY Qty: 15 0RF Rx Instructions: leave on most painful area for up to 12 hrs prednisone 20 mg tablet 40 mg PO DAILY Qty: 10 0RF No Action amlodipine [Norvasc] 5 mg tablet 5 mg PO DAILY Qty: 30 0RF fizatnaokl-aysbhnzylxhzv-qfah [Fioricet] 50-300-40 mg capsule 1 cap PO Q4-6H PRN (Reason: headache) Qty: 14 0RF hydrocortisone [Anti-Itch (HC)] 1 % lotion 1 appl topical BID PRN (Reason: rash) Qty: 120 0RF acetaminophen [Tylenol Extra Strength] 500 mg tablet 500 mg PO Q6H PRN (Reason: fever or pain) Qty: 14 0RF lidocaine [Lidoderm] 5 % adhesive patch,medicated 1 patch topical DAILY MDD remove after 12 hours PRN (Reason: pain) Qty: 30 0RF Rx Instructions: leave on most painful area for up to 12 hrs naproxen 500 mg tablet 500 mg PO BID PRN (Reason: pain) 10 Days Qty: 20 0RF cyclobenzaprine 5 mg tablet 5 mg PO Q8H PRN (Reason: pain (scale score 7-10)) 5 Days Qty: 14 0RF Stand Alone Forms: Work/School Release Print Language: Persian
[2024-03-18 18:46] VITALS: BP 130/92; PULSE 80; RESP 18; TEMP 36.7; O2SAT 99
== END 2024-03-18 18:46 | disposition home or self-care (01) ==
PROVIDERS: Emergency Provider Internal Medicine
DX: S39.012A Strain of muscle, fascia and tendon of lower back, initial encounter (principal); X50.0XXA Overexertion from strenuous movement or load, initial encounter; Z03.818 Encounter for observation for suspected exposure to other biological agents ruled out; Y93.89 Activity, other specified; Y92.511 Restaurant or cafe as the place of occurrence of the external cause; Y99.0 Civilian activity done for income or pay
CPT/HCPCS: 0241U; 72100; 99282; 99283

== ENCOUNTER 2024-09-16 08:49 | Emergency (ER) | payer SELFPAY ==
[2024-09-16 09:33] VITALS: BP 141/89; PULSE 69; RESP 16; TEMP 36.3; O2SAT 99; BMI 23.6
--- NOTE | 2024-09-16 09:35 | ED.ABDPAIN ---
HPI - Abdominal Pain General Chief Complaint: Abdominal Pain Stated Complaint: blood in stool, V/D, bloating Related Data Previous Rx's ?Medication ?Instructions ?Recorded amlodipine 5 mg tablet (Norvasc) 5 mg PO DAILY #30 tabs 07/18/22 piuzjhagki-ajbwetppioaru-foukpkhg 1 cap PO Q4-6H PRN headache #14 07/18/22 50 mg-300 mg-40 mg capsule caps (Fioricet) hydrocortisone 1 % lotion 1 appl topical BID PRN rash #120 mL 07/18/22 (Anti-Itch (hydrocortisone)) acetaminophen 500 mg tablet 500 mg PO Q6H PRN fever or pain 10/17/22 (Tylenol Extra Strength) #14 tabs cyclobenzaprine 5 mg tablet 5 mg PO Q8H PRN pain (scale score 10/17/22 7-10) 5 days #14 tabs lidocaine 5 % topical patch 1 patch topical DAILY PRN pain #30 10/17/22 (Lidoderm) ea naproxen 500 mg tablet 500 mg PO BID PRN pain 10 days #20 10/17/22 tabs cyclobenzaprine 10 mg tablet 10 mg PO TID PRN muscle spasm #10 03/18/24 tabs lidocaine 5 % topical patch 1 patch topical DAILY #15 ea 03/18/24 prednisone 20 mg tablet 40 mg (2 x 20 mg) PO DAILY #10 tabs 03/18/24 Allergies Allergy/AdvReac Type Severity Reaction Status Date / Time From ZOFRAN Allergy Severe SWELLING/RA Uncoded 09/16/24 09:34 SH zofran Allergy Mild rash on Uncoded 09/16/24 09:34 face PMFSH Social History Social History Advance Directives: No Advance Directives Information Provided: No Do you have a plan to hurt others: No Plan Physical Exam ED Vital Signs: Vital Signs - 24 hr 09/16/24 09:33 Temperature 97.4 F Pulse Rate 69 Respiratory Rate 16 Blood Pressure 141/89 H Pulse Oximetry 99 BMI result Body Mass Index 23.6 Course Course Course Narrative: 38 yo male with no PMH here with diffuse abdominal pain and intermittent bloody stools for 2 days. No fevers, no recent travel or procedures, no abx use. He has never had this before. He has nausea as well. He has blood and stool then sometimes just blood. At this time labs and defer GI bleed imaging to main provider this is a RAPID medical screening exam the rest of the history and physical exam is to be done by the main provider. REYNA 09/16/24 [id number] Medical Decision Making Lab Data 09/16/24 09:49 09/16/24 09:49 Labs: Lab Results 09/16/24 Range/Units 09:49 WBC 7.2 (4.8-10.8) X10*3/uL RBC 5.11 (4.60-5.80) X10*6/uL Hgb 13.8 L (14.0-18.0) g/dl Hct 42.0 (42.0-52.0) % MCV 82.2 (80.0-98.0) fL MCH 27.0 (27.0-33.0) pg MCHC 32.9 (31.0-36.0) g/dl RDW 15.7 (11.0-16.0) % Plt Count 276 (160-400) X10*3/uL MPV 8.6 L (9.4-12.4) fL Immature Gran % (Auto) 0.4 (0.0-0.4) % Neut % (Auto) 59.4 (45-73) % Lymph % (Auto) 27.9 (20-40) % [place] % (Auto) 10.2 (2-11) % Eos % (Auto) 1.5 (0-4) % Baso % (Auto) 0.6 (0-2) % Lymph # (Auto) 2.0 (1.2-4.9) X10*3/uL [place] # (Auto) 0.7 (0.1-1.2) X10*3/uL Eos # (Auto) 0.1 (0.0-0.4) X10*3/uL Baso # (Auto) 0.0 (0.0-0.2) X10*3/uL Abs Immat Gran (auto) 0.03 (0.00-0.03) X10*3/uL Absolute Neuts (auto) 4.3 (2.0-8.3) x10*3/uL Absolute Nucleated RBC 0.000 (0.0-0.012) X10*3/uL Nucleated RBC % (auto) 0.0 (0.0-0.2) /100WBC Sodium 141 (135-145) mmol/L Potassium 4.2 (3.3-5.1) mmol/L Chloride 114 H (96-108) mmol/L Carbon Dioxide 24 (22-29) mmol/L Anion Gap 7 L (12-20) BUN 20 H (9-16) mg/dL Creatinine 0.86 (0.5-1.4) mg/dL Estim Creat Clear Calc 119.0 Estimated GFR > 60 Random Glucose 97 (60-115) mg/dL Calcium 9.4 (8.4-10.2) mg/dL Magnesium 2.0 (1.6-2.6) mg/dL Total Bilirubin 0.2 (0.0-1.0) mg/dL Direct Bilirubin < 0.2 (0.0-0.5) mg/dL AST 21 (5-37) U/L ALT 21 (0-40) U/L Alkaline Phosphatase 75 (39-117) U/L Total Protein 7.8 (6.5-8.0) g/dL Albumin 4.9 (3.5-5.0) g/dL Lipase 21 (8-78) U/L Discharge Plan Discharge Clinical Impression: Abdominal pain Patient Disposition: Left W/O Completing Treatment Prescriptions: No Action amlodipine [Norvasc] 5 mg tablet 5 mg PO DAILY Qty: 30 0RF efchifqzps-nujjpoawqjivn-zzto [Fioricet] 50-300-40 mg capsule 1 cap PO Q4-6H PRN (Reason: headache) Qty: 14 0RF hydrocortisone [Anti-Itch (HC)] 1 % lotion 1 appl topical BID PRN (Reason: rash) Qty: 120 0RF acetaminophen [Tylenol Extra Strength] 500 mg tablet 500 mg PO Q6H PRN (Reason: fever or pain) Qty: 14 0RF lidocaine [Lidoderm] 5 % adhesive patch,medicated 1 patch topical DAILY MDD remove after 12 hours PRN (Reason: pain) Qty: 30 0RF Rx Instructions: leave on most painful area for up to 12 hrs naproxen 500 mg tablet 500 mg PO BID PRN (Reason: pain) 10 Days Qty: 20 0RF cyclobenzaprine 5 mg tablet 5 mg PO Q8H PRN (Reason: pain (scale score 7-10)) 5 Days Qty: 14 0RF cyclobenzaprine 10 mg tablet 10 mg PO TID PRN (Reason: muscle spasm) Qty: 10 0RF lidocaine 5 % adhesive patch,medicated 1 patch topical DAILY Qty: 15 0RF Rx Instructions: leave on most painful area for up to 12 hrs prednisone 20 mg tablet 40 mg PO DAILY Qty: 10 0RF Discharge Date/Time: 09/16/24 18:55
[2024-09-16 09:56] LABS: MANUAL DIFF FLAG NO
[2024-09-16 09:58] LABS: Basophils Percent Auto 0.6 % (0-2); Eosinophils Absolute Auto 0.1 X10*3/uL (0.0-0.4); Eosinophils Percent Auto 1.5 % (0-4); Hemoglobin 13.8 g/dl (14.0-18.0); Imm Gran Abs Auto 0.03 X10*3/uL (0.00-0.03); Imm Gran Pct Auto 0.4 % (0.0-0.4); Lymphocytes Percent Auto 27.9 % (20-40); Mean Corpuscular HGB Conc 32.9 g/dl (31.0-36.0); Mean Corpuscular Volume 82.2 fL (80.0-98.0); Mean Platelet Volume 8.6 fL (9.4-12.4); Monocytes Absolute Auto 0.7 X10*3/uL (0.1-1.2); Monocytes Percent Auto 10.2 % (2-11); Neutrophils Absolute Auto 4.3 x10*3/uL (2.0-8.3); Neutrophils Percent Auto 59.4 % (45-73); Platelet Count 276 X10*3/uL (160-400); Red Blood Count 5.11 X10*6/uL (4.60-5.80); Red Cell Distribution Width 15.7 % (11.0-16.0); White Blood Count 7.2 X10*3/uL (4.8-10.8)
[2024-09-16 10:14] LABS: Alanine Aminotransferase 21 U/L (0-40); Albumin Level 4.9 g/dL (3.5-5.0); Alkaline Phosphatase 75 U/L (39-117); Anion Gap 7 (12-20); Aspartate Amino Transferase 21 U/L (5-37); Bilirubin Direct < 0.2 mg/dL (0.0-0.5); Bilirubin Total 0.2 mg/dL (0.0-1.0); Blood Urea Nitrogen 20 mg/dL (9-16); Calcium 9.4 mg/dL (8.4-10.2); Carbon Dioxide 24 mmol/L (22-29); Chloride 114 mmol/L (96-108); Estimated Glomerular Filt Rate > 60; Glucose Random 97 mg/dL (60-115); Lipase 21 U/L (8-78); Potassium 4.2 mmol/L (3.3-5.1); Sodium 141 mmol/L (135-145); Total Protein 7.8 g/dL (6.5-8.0)
== END 2024-09-16 18:55 | disposition left against medical advice (07) ==
LOC: HO.ED 18:40
PROVIDERS: Emergency Provider Emergency Medicine
DX: R10.9 Unspecified abdominal pain (principal); K92.1 Melena
CPT/HCPCS: 36415; 80048; 80076; 83690; 83735; 85025; 99281; 99283